=== PATIENT | male | born 1995 | race American Indian/Alaskan Native ===

== ENCOUNTER 2016-08-15 18:57 | Emergency (ER) | payer MEDICAID ==
[2016-08-15 19:14] VITALS: BP 145/80
--- NOTE | 2016-08-15 19:59 | EDM.PDOC ---
{null, ED HPI GENERAL MEDICAL PROBLEM - General Chief Complaint: Eye Problems Stated Complaint: eye infection [id number] Time Seen by Provider: 08/15/16 19:56 Source of Information: Reports: Patient History Limitations: Reports: No Limitations - History of Present Illness INITIAL COMMENTS - FREE TEXT/NARRATIVE: Sx few days getting worse. Left Eye Pain Score (Numeric/FACES): 5 - Related Data Allergies Allergy/AdvReac Type Severity Reaction Status Date / Time No Known Allergies Allergy Verified 02/24/16 19:38 Home Meds: Home Meds . [No Known Home Meds] 11/27/14 [History] Past Medical History - Past Health History Medical/Surgical History: Denies Medical/Surgical History Musculoskeletal History: Reports: Other (See Below) Other Musculoskeletal History: sprains Social & Family History - Family History Cardiac: Reports: Heart Failure, High Cholesterol, Hypertension, [place], Stent Other Cardiac Family History: Mom and dad - Tobacco Use Smoking Status *Q: Never Smoker Second Hand Smoke Exposure: No - Caffeine Use Caffeine Use: Reports: Coffee, Tea - Recreational Drug Use Recreational Drug Use: No ED ROS GENERAL - Review of Systems Review Of Systems: ROS reveals no pertinent complaints other than HPI. ED EXAM GENERAL W FULL EYE - Physical Exam Exam: See Below Exam Limited By: No Limitations General Appearance: Alert, WD/WN, Mild Distress, Other (eye discomfort) Eye Exam: Left Eye: Conjunctival Injection, Other (local erythema minimal lid swelling) Eyelids: Left: Edema, Erythema Conjunctiva & Sclera: Left: Injected Cornea Exam: Bilateral: Normal Appearance Extraocular Movements: Bilateral: Intact Pupillary Size: Bilateral: 4 mm Pupillary Reaction: Bilateral: Brisk Anterior Chamber: Bilateral: Normal Appearance Ears: Hearing Grossly Normal Throat/Mouth: Normal Voice, No Airway Compromise Head: Atraumatic Neck: Non-Tender, Full Range of Motion Respiratory/Chest: No Respiratory Distress Cardiovascular: Regular Rate, Rhythm GI/Abdominal: Soft, Non-Tender Neurological: Alert, Oriented, Normal Cognition, Normal Gait, No Motor/Sensory Deficits Psychiatric: Normal Affect, Normal Mood Skin Exam: Warm, Dry Lymphatic: No Adenopathy Course - Vital Signs Last Recorded V/S: Last Vital Signs Temp 36.6 C 08/15/16 19:18 Pulse 83 08/15/16 19:18 Resp 16 08/15/16 19:18 BP 145/80 H 08/15/16 19:18 Pulse Ox 98 08/15/16 19:18 Departure - Departure Time of Disposition: 19:58 Disposition: Home, Self-Care 01 Condition: good Clinical Impression: Conjunctivitis Qualifiers: Conjunctivitis type: acute Acute conjunctivitis type: unspecified Laterality: left Qualified Code(s): H10.32 - Unspecified acute conjunctivitis, left eye - Discharge Information Instructions: Bacterial Conjunctivitis, [id number] Forms: ED Department Discharge Additional Instructions: 1) don't rub eye 2) keep eye clean 3) follow up at clinic or recheck as needed rx togo: gentamycin eye drops 2 drops qid x 5 days }
== END 2016-08-15 20:02 | disposition home or self-care (01) ==
LOC: DL.ED 18:57
DX: H10.32 Unspecified acute conjunctivitis, left eye (principal)
CPT/HCPCS: 99282

== ENCOUNTER 2016-11-23 19:59 | Emergency (ER) | payer MEDICAID ==
[2016-11-23 20:07] VITALS: BP 139/90
--- NOTE | 2016-11-23 20:15 | EDM.PDOC ---
ED HPI GENERAL MEDICAL PROBLEM - General Chief Complaint: Lower Extremity Injury/Pain Stated Complaint: LEG PAIN [id number] Time Seen by Provider: 11/23/16 20:12 Source of Information: Reports: Patient History Limitations: Reports: No Limitations - History of Present Illness INITIAL COMMENTS - FREE TEXT/NARRATIVE: twisted [employer] CHIE[employer] Left Ankle Pain Score (Numeric/FACES): 5 - Related Data Allergies Allergy/AdvReac Type Severity Reaction Status Date / Time No Known Allergies Allergy Verified 11/23/16 20:04 Home Meds: Home Meds . [No Known Home Meds] 11/27/14 [History] Past Medical History - Past Health History Medical/Surgical History: Denies Medical/Surgical History HEENT History: Reports: None Cardiovascular History: Reports: None Respiratory History: Reports: None Gastrointestinal History: Reports: None Genitourinary History: Reports: None Musculoskeletal History: Reports: Other (See Below) Other Musculoskeletal History: sprains Neurological History: Reports: None Endocrine/Metabolic History: Reports: None Dermatologic History: Reports: None - Past Surgical History HEENT Surgical History: Reports: None Cardiovascular Surgical History: Reports: None Respiratory Surgical History: Reports: None GI Surgical History: Reports: None Male Surgical History: Reports: None Endocrine Surgical History: Reports: None Musculoskeletal Surgical History: Reports: None Social & Family History - Family History Cardiac: Reports: Heart Failure, High Cholesterol, Hypertension, [place], Stent Other Cardiac Family History: Mom and dad - Tobacco Use Smoking Status *Q: Never Smoker Second Hand Smoke Exposure: No - Caffeine Use Caffeine Use: Reports: Coffee, Soda, Tea - Recreational Drug Use Recreational Drug Use: No Review of Systems - Review of Systems Review Of Systems: ROS reveals no pertinent complaints other than HPI. ED EXAM, GENERAL - Physical Exam Exam: See Below Exam Limited By: No Limitations General Appearance: Alert, WD/WN, No Apparent Distress Ears: Hearing Grossly Normal Throat/Mouth: Normal Voice, No Airway Compromise Head: Atraumatic Neck: Non-Tender, Full Range of Motion Respiratory/Chest: No Respiratory Distress Cardiovascular: Regular Rate, Rhythm GI/Abdominal: Soft, Non-Tender Extremities: Limited Range of Motion, Other (left ankle swollen, tender R/P, NV wnl, gait limited to pain) Neurological: Alert, Oriented, Normal Cognition, No Motor/Sensory Deficits Psychiatric: Normal Affect, Normal Mood Skin Exam: Warm, Dry, Normal Color Lymphatic: No Adenopathy Course - Vital Signs Last Recorded V/S: Last Vital Signs Temp 35.7 C 11/23/16 20:06 Pulse 115 H 11/23/16 20:06 Resp 16 11/23/16 20:06 BP 139/90 11/23/16 20:06 Pulse Ox 97 11/23/16 20:06 - Re-Assessments/Exams Free Text/Narrative Re-Assessment/Exam: 11/23/16 21:03 results discussed with pt. Departure - Departure Time of Disposition: 21:03 Disposition: Home, Self-Care 01 Condition: Good Clinical Impression: High ankle sprain of left lower extremity Qualifiers: Encounter type: initial encounter Qualified Code(s): S93.432A - Sprain of tibiofibular ligament of left ankle, initial encounter - Discharge Information Instructions: Ankle Sprain, [id number] Forms: ED Department Discharge Additional Instructions: 1) wear RASHAAD for comfort 2) elevate leg as much as possible 3) ice intermittently for swelling 4) follow up at clinic or recheck as needed
== END 2016-11-23 21:11 | disposition home or self-care (01) ==
LOC: DL.ED 19:59
DX: S93.432A Sprain of tibiofibular ligament of left ankle, initial encounter (principal); X50.1XXA Overexertion from prolonged static or awkward postures, initial encounter
CPT/HCPCS: 73610-LT; 99283

== ENCOUNTER 2017-03-03 20:50 | Emergency (ER) | payer MEDICAID ==
[2017-03-03 20:57] VITALS: BP 155/91
--- NOTE | 2017-03-03 21:12 | EDM.PDOC ---
ED HPI GENERAL MEDICAL PROBLEM - General Chief Complaint: Chest Pain Stated Complaint: STOMACH AND CHEST PAIN Time Seen by Provider: 03/03/17 21:05 Source of Information: Reports: Patient History Limitations: Reports: No Limitations - History of Present Illness INITIAL COMMENTS - FREE TEXT/NARRATIVE: This 21 yo male patient reports to the ED with a 1 day history of upper abdominal pain and chest pain. The patient reports his symptoms started yesterday after drinking an energy drink. The patient reports his pain has continued to get worse since that time. The patient reports he took some Tums today at about 1530, but got no symptom relief. The patient reports he has been seen for similar symptoms in the past, but they have not been this bad in the past. The patient has not attempted to be seen by his primary care provider. 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 [No Known Home Meds] 11/27/14 [History] Past Medical History - Past Health History Medical/Surgical History: Denies Medical/Surgical History HEENT History: Reports: None Cardiovascular History: Reports: None Respiratory History: Reports: None Gastrointestinal History: Reports: None Genitourinary History: Reports: None Musculoskeletal History: Reports: Other (See Below) Other Musculoskeletal History: sprains Neurological History: Reports: None Endocrine/Metabolic History: Reports: None Dermatologic History: Reports: None - Past Surgical History HEENT Surgical History: Reports: None Cardiovascular Surgical History: Reports: None Respiratory Surgical History: Reports: None GI Surgical History: Reports: None Male Surgical History: Reports: None Endocrine Surgical History: Reports: None Musculoskeletal Surgical History: Reports: None Social & Family History - Family History Cardiac: Reports: Heart Failure, High Cholesterol, Hypertension, [place], Stent Other Cardiac Family History: Mom and dad - Tobacco Use Smoking Status *Q: Never Smoker Second Hand Smoke Exposure: No - Caffeine Use Caffeine Use: Reports: Coffee, Soda, Tea - Recreational Drug Use Recreational Drug Use: No ED ROS GENERAL - Review of Systems Review Of Systems: ROS reveals no pertinent complaints other than HPI. ED EXAM, GENERAL - Physical Exam Exam: See Below Exam Limited By: No Limitations General Appearance: Alert, WD/WN, Moderate Distress Eye Exam: Bilateral Eye: EOMI, Normal Inspection, PERRL Ears: Normal External Exam, Normal Canal, Hearing Grossly Normal, Normal TMs Nose: Normal Inspection, Normal Mucosa, No Blood Throat/Mouth: Normal Inspection, Normal Lips, Normal Teeth, Normal Gums, Normal Oropharynx, Normal Voice, No Airway Compromise Head: Atraumatic, Normocephalic Neck: Normal Inspection, Supple, Non-Tender, Full Range of Motion Respiratory/Chest: No Respiratory Distress, Lungs Clear, Normal Breath Sounds, No Accessory Muscle Use, Chest Non-Tender Cardiovascular: Normal Peripheral Pulses, Regular Rate, Rhythm, No Edema, No Gallop, No JVD, No Murmur, No Rub GI/Abdominal: Normal Bowel Sounds, Soft, No Organomegaly, No Distention, No Mass , Pelvis Stable, Tender (epigastric) (Male) Exam: Deferred Rectal (Males) Exam: Deferred Back Exam: Normal Inspection, Full Range of Motion, NT Extremities: Normal Inspection, Normal Range of Motion, Non-Tender, Normal Capillary Refill, No Pedal Edema Neurological: Alert, Oriented, CN II-XII Intact, Normal Cognition, Normal Gait, Normal Reflexes, No Motor/Sensory Deficits Psychiatric: Normal Affect, Normal Mood Skin Exam: Warm, Dry, Intact, Normal Color, No Rash Lymphatic: No Adenopathy Course - Vital Signs Last Recorded V/S: Last Vital Signs Temp 37.1 C 03/03/17 20:54 Pulse 122 H 03/03/17 20:54 Resp 18 03/03/17 20:54 BP 155/91 H 03/03/17 20:54 Pulse Ox 95 03/03/17 20:54 - Orders/Labs/Meds Orders: Active Orders 24 hr Category Date Time Status EKG Documentation Completion [RC] URGENT Care 03/03/17 21:03 Active UA W/MICROSCOPIC [URIN] Stat Lab 03/03/17 22:04 Ordered Labs: Laboratory Tests 03/03/17 03/03/17 03/03/17 Range/Units 21:19 21:19 21:19 WBC 16.3 H (5.0-10.0) 10^3/uL RBC 5.69 (4.6-6.2) 10^6/uL Hgb 16.4 (14.0-18.0) g/dL Hct 48.1 (40.0-54.0) % MCV 84.5 (80-100) fL MCH 28.8 (27.0-34.0) pg MCHC 34.1 (33.0-35.0) g/dL Plt Count 310 (150-450) 10^3/uL Neut % (Auto) 84.9 H (42.2-75.2) % Lymph % (Auto) 7.8 L (20.5-50.1) % [place] % (Auto) 6.6 (2-8) % Eos % (Auto) 0.6 L (1.0-3.0) % Baso % (Auto) 0.1 (0.0-1.0) % Sodium 136 (135-145) mmol/L Potassium 3.7 (3.6-5.0) mmol/L Chloride 100 L (101-111) mmol/L Carbon Dioxide 21.0 (21.0-31.0) mmol/L Anion Gap 18.7 BUN 16 (7-18) mg/dL Creatinine 0.7 (0.6-1.3) mg/dL Est Cr Clr Drug Dosing 173.81 mL/min Estimated GFR (MDRD) > 60 BUN/Creatinine Ratio 22.85 Glucose 114 H (74-105) mg/dL Lactic Acid 0.9 (0.5-2.2) mmol/L Calcium 8.8 (8.4-10.2) mg/dl Total Bilirubin 1.2 H (0.2-1.0) mg/dL AST 27 (10-42) IU/L ALT 21 (10-60) IU/L Alkaline Phosphatase 98 (42-121) IU/L Troponin I < 0.02 (0.00-0.02) ng/ml Total Protein 8.3 H (6.7-8.2) g/dl Albumin 4.3 (3.2-5.5) g/dl Globulin 4.0 Albumin/Globulin Ratio 1.08 Amylase 42 (28-100) U/L Lipase 21 L (22-51) U/L Urine Color (YELLOW) Urine Appearance (CLEAR) Urine pH (5.0-9.0) Ur Specific [place] (1.005-1.030) Urine Protein (NEGATIVE) Urine Glucose (UA) (NEGATIVE) Urine Ketones (NEGATIVE) Urine Occult Blood (NEGATIVE) Urine Nitrite (NEGATIVE) Urine Bilirubin (NEGATIVE) Urine Urobilinogen (0.2-1.0) mg/dL Ur Leukocyte Esterase (NEGATIVE) Urine Opiates Screen (NEGATIVE) Ur Oxycodone Screen (NEGATIVE) Urine Methadone Screen (NEGATIVE) Ur Barbiturates Screen (NEGATIVE) U Tricyclic Antidepress (NEGATIVE) Ur Phencyclidine Scrn (NEGATIVE) Ur Amphetamine Screen (NEGATIVE) U Methamphetamines Scrn (NEGATIVE) Urine MDMA Screen (NEGATIVE) U Benzodiazepines Scrn (NEGATIVE) Urine Cocaine Screen (NEGATIVE) U Marijuana (THC) Screen (NEGATIVE) 03/03/17 03/03/17 Range/Units 21:58 21:58 WBC (5.0-10.0) 10^3/uL RBC (4.6-6.2) 10^6/uL Hgb (14.0-18.0) g/dL Hct (40.0-54.0) % MCV (80-100) fL MCH (27.0-34.0) pg MCHC (33.0-35.0) g/dL Plt Count (150-450) 10^3/uL Neut % (Auto) (42.2-75.2) % Lymph % (Auto) (20.5-50.1) % [place] % (Auto) (2-8) % Eos % (Auto) (1.0-3.0) % Baso % (Auto) (0.0-1.0) % Sodium (135-145) mmol/L Potassium (3.6-5.0) mmol/L Chloride (101-111) mmol/L Carbon Dioxide (21.0-31.0) mmol/L Anion Gap BUN (7-18) mg/dL Creatinine (0.6-1.3) mg/dL Est Cr Clr Drug Dosing mL/min Estimated GFR (MDRD) BUN/Creatinine Ratio Glucose (74-105) mg/dL Lactic Acid (0.5-2.2) mmol/L Calcium (8.4-10.2) mg/dl Total Bilirubin (0.2-1.0) mg/dL AST (10-42) IU/L ALT (10-60) IU/L Alkaline Phosphatase (42-121) IU/L Troponin I (0.00-0.02) ng/ml Total Protein (6.7-8.2) g/dl Albumin (3.2-5.5) g/dl Globulin Albumin/Globulin Ratio Amylase (28-100) U/L Lipase (22-51) U/L Urine Color Yellow (YELLOW) Urine Appearance Clear (CLEAR) Urine pH 5.5 (5.0-9.0) Ur Specific [place] >= 1.030 (1.005-1.030) Urine Protein Trace H (NEGATIVE) Urine Glucose (UA) Negative (NEGATIVE) Urine Ketones Negative (NEGATIVE) Urine Occult Blood Negative (NEGATIVE) Urine Nitrite Negative (NEGATIVE) Urine Bilirubin Negative (NEGATIVE) Urine Urobilinogen 0.2 (0.2-1.0) mg/dL Ur Leukocyte Esterase Negative (NEGATIVE) Urine Opiates Screen Negative (NEGATIVE) Ur Oxycodone Screen Negative (NEGATIVE) Urine Methadone Screen Negative (NEGATIVE) Ur Barbiturates Screen Negative (NEGATIVE) U Tricyclic Antidepress Negative (NEGATIVE) Ur Phencyclidine Scrn Negative (NEGATIVE) Ur Amphetamine Screen Negative (NEGATIVE) U Methamphetamines Scrn Negative (NEGATIVE) Urine MDMA Screen Negative (NEGATIVE) U Benzodiazepines Scrn Negative (NEGATIVE) Urine Cocaine Screen Negative (NEGATIVE) U Marijuana (THC) Screen Negative (NEGATIVE) Meds: Medications Discontinued Medications Generic Name Dose Route Start Last Admin Trade Name Freq PRN Reason Stop Dose Admin Al Hydroxide/Mg Hydroxide 30 ml 03/03/17 22:04 03/03/17 22:11 Gi Cocktail PO 03/03/17 22:05 30 ml ONETIME ONE Administration Departure - Departure Time of Disposition: 22:21 Disposition: Home, Self-Care 01 Condition: Fair Clinical Impression: Gastroesophageal reflux disease Qualifiers: Esophagitis presence: with esophagitis Qualified Code(s): K21.0 - Gastro- esophageal reflux disease with esophagitis Instructions: Food Choices for Gastroesophageal Reflux Disease, Adult, Gastroesophageal Reflux Disease, Adult Forms: ED Department Discharge Care Plan Goals: The patient was advised of the examination, lab, EKG and x-ray results during the visit. The patient reports symptom relief after getting a GI Cocktail. The patient was discharged with a script for Omeprazole (20 mg) #30 to take 1 by mouth daily (30 minutes prior to meal). If the patient has any additional symptoms or concerns, the patient should follow-up with his primary care facility or return to the emergency department. - My Orders Last 24 Hours: My Active Orders 03/03/17 21:03 EKG Documentation Completion [RC] URGENT 03/03/17 22:04 UA W/MICROSCOPIC [URIN] Stat - Assessment/Plan Last 24 Hours: My Active Orders 03/03/17 21:03 EKG Documentation Completion [RC] URGENT 03/03/17 22:04 UA W/MICROSCOPIC [URIN] Stat
[2017-03-03 21:47] LABS: CHLORIDE,CL 100 mmol/L (101-111); SODIUM,NA 136 mmol/L (135-145)
[2017-03-03] MEDS ORDERED: GI Cocktail Oral Solution 30 ML PO ONE (22:04)
--- NOTE | 2017-03-07 12:50 | EKG ---
03/03/2017 - MAYO LUGO - [facility] 12-lead EKG shows normal sinus rhythm, sinus tachycardia. No significant ST elevation or ST depression noted on this 12-lead EKG. Nonspecific ST-T wave changes noted on lead AVR. [facility] /[id number]
== END 2017-03-03 22:26 | disposition home or self-care (01) ==
LOC: DL.ED 20:50
DX: K21.0 Gastro-esophageal reflux disease with esophagitis (principal)
CPT/HCPCS: 36415; 71010; 80053; 80305; 81001; 82150; 83605; 83690; 84484; 85025; 93005; 99285; A9270

== ENCOUNTER 2017-08-07 21:19 | Emergency (ER) | payer MEDICAID ==
[2017-08-07 21:35] VITALS: BP 137/82
== END 2017-08-08 00:30 | disposition left against medical advice (07) ==
LOC: DL.ED 21:19
DX: Z53.21 Procedure and treatment not carried out due to patient leaving prior to being seen by health care provider (principal)
CPT/HCPCS: 80305; 81001; 87491; 87591

== ENCOUNTER 2018-07-26 17:10 | Emergency (ER) | payer MEDICAID ==
[2018-07-26 17:42] VITALS: BP 133/84
--- NOTE | 2018-07-27 12:31 | EDM.PDOC ---
Scribed by Marianela Royal 07/26/18 [id number] for Margarita Cruz NP ED HPI GENERAL MEDICAL PROBLEM - General Chief Complaint: ENT Problem Stated Complaint: SORE THROAT Time Seen by Provider: 07/26/18 18:16 Source of Information: Reports: Patient, RN, RN Notes Reviewed History Limitations: Reports: No Limitations - History of Present Illness INITIAL COMMENTS - FREE TEXT/NARRATIVE: Patient presents to ER with complaint of feeling sick. This began 2 days ago. He has burning in the throat. HE rates throat pain as 5/10. He has a hoarse voice. He has had fever, sore throat, cough, stuffy nose and burning in chest. He has had no chills, nausea, vomiting, diarrhea, headache or sinus pain. Onset: Gradual Duration: Constant Location: Reports: Generalized Quality: Reports: Ache Severity: Mild Improves with: Reports: None Worsens with: Reports: None Associated Symptoms: Reports: No Other Symptoms Treatments NOTEMAN: Reports: Other Medication(s) Throat Pain Score (Numeric/FACES): 5 - Related Data Allergies Allergy/AdvReac Type Severity Reaction Status Date / Time No Known Allergies Allergy Verified 07/26/18 17:57 Home Meds: Home Meds . [No Known Home Meds] 11/27/14 [History] Past Medical History - Past Health History Medical/Surgical History: Denies Medical/Surgical History HEENT History: Reports: None Cardiovascular History: Reports: None Respiratory History: Reports: None Gastrointestinal History: Reports: None Genitourinary History: Reports: None Musculoskeletal History: Reports: Other (See Below) Other Musculoskeletal History: sprains Neurological History: Reports: None Endocrine/Metabolic History: Reports: None Dermatologic History: Reports: None - Past Surgical History HEENT Surgical History: Reports: None Cardiovascular Surgical History: Reports: None Respiratory Surgical History: Reports: None GI Surgical History: Reports: None Male Surgical History: Reports: None Endocrine Surgical History: Reports: None Musculoskeletal Surgical History: Reports: None Social & Family History - Family History Cardiac: Reports: Heart Failure, High Cholesterol, Hypertension, [place], Stent Other Cardiac Family History: Mom and dad - Tobacco Use Smoking Status *Q: Never Smoker Second Hand Smoke Exposure: No - Caffeine Use Caffeine Use: Reports: Energy Drinks, Soda - Recreational Drug Use Recreational Drug Use: No ED ROS ENT - Review of Systems Review Of Systems: ROS reveals no pertinent complaints other than HPI. ED EXAM, ENT - Physical Exam Exam: See Below Exam Limited By: No Limitations General Appearance: Alert, WD/WN, No Apparent Distress Eye Exam: Bilateral Eye: EOMI, Normal Inspection, PERRL Ears: Normal External Exam, Normal Canal, Hearing Grossly Normal, Normal TMs Nose: Normal Inspection, Normal Mucousa, No Blood Mouth/Throat: Other (tonsils +2 erythematous. Hoarse voice.) Head: Atraumatic, Normocephalic Neck: Normal Inspection (+2 anterior cervical tender), Supple, Non-Tender, Full Range of Motion Respiratory/Chest: No Respiratory Distress, Lungs Clear, Normal Breath Sounds, No Accessory Muscle Use, Chest Non-Tender Cardiovascular: Normal Peripheral Pulses, Regular Rate, Rhythm, No Edema, No Gallop, No JVD, No Murmur, No Rub GI/Abdominal: Normal Bowel Sounds, Soft, Non-Tender, No Organomegaly, No Distention, No Abnormal Bruit, No Mass (Male) Exam: Deferred Rectal (Males) Exam: Deferred Back: Normal Inspection, Full Range of Motion Extremities: Normal Inspection, Normal Range of Motion, Non-Tender, No Pedal Edema, Normal Capillary Refill Neurological: Alert, Oriented, CN II-XII Intact, Normal Cognition, Normal Gait, Normal Reflexes, No Motor/Sensory Deficits Psychiatric: Normal Affect, Normal Mood Skin: Warm, Dry, Intact, Normal Color, No Rash Lymphatic: No Adenopathy Course - Vital Signs Last Recorded V/S: Last Vital Signs Temp 95.8 F 07/26/18 17:35 Pulse 89 07/26/18 17:35 Resp 16 07/26/18 17:35 BP 133/84 07/26/18 17:35 Pulse Ox 95 07/26/18 17:35 - Orders/Labs/Meds Labs: Rapid strep: Negative. Departure - Departure Time of Disposition: 18:33 Disposition: Home, Self-Care 01 Condition: Fair Clinical Impression: Tonsillitis, Laryngitis - Discharge Information *PRESCRIPTION DRUG MONITORING PROGRAM REVIEWED*: No *COPY OF PRESCRIPTION DRUG MONITORING REPORT IN PATIENT SAM: No Instructions: Tonsillitis, [id number], Laryngitis, [id number] Referrals: PCP,None [Primary Care Provider] - Forms: ED Department Discharge Additional Instructions: RX: Amoxicillin May use Tylenol and/or Ibuprofen as directed for pain/fever Follow up with your primary care facility Drink plenty of water I have read and agree with the documentation that has been completed regarding this visit. By signing this record, I attest that the documentation was completed in my physical presence and is an accurate record of the encounter.
== END 2018-07-26 18:46 | disposition home or self-care (01) ==
LOC: DL.ED 17:10
DX: J03.90 Acute tonsillitis, unspecified (principal); J04.0 Acute laryngitis
CPT/HCPCS: 87081; 87430; 99283

== ENCOUNTER 2021-08-15 09:43 | Emergency (ER) | payer MEDICAID, OTHER ==
[2021-08-15 10:12] VITALS: BP 138/85; PULSE 91
[2021-08-15 12:17] LABS: CORONAVIRUS COVID-19 NAA NEGATIVE (NEGATIVE)
[2021-08-15 12:17] LABS: ANION GAP 13.4 mEq/L (7-13); CHLORIDE,CL 103 mmol/L (98-107); SODIUM,NA 139 mmol/L (136-145)
== END 2021-08-15 12:41 | disposition home or self-care (01) ==
LOC: DL.ED 09:43
DX: J40 Bronchitis, not specified as acute or chronic (principal); Z20.822 Contact with and (suspected) exposure to COVID-19
CPT/HCPCS: 0240U; 36415; 71046; 80053; 83605; 83880; 84484; 85025; 85379; 93005; 99285

== ENCOUNTER 2021-09-05 19:56 | Emergency (ER) | payer OTHER ==
[2021-09-05 20:33] VITALS: BP 142/95; PULSE 104
[2021-09-05] MEDS ORDERED: methylPREDNISolone Sodium Succinate 125 MG/2 ML SDV IVPUSH ONE (21:43)
== END 2021-09-05 21:58 | disposition home or self-care (01) ==
LOC: DL.ED 19:56
DX: L24.9 Irritant contact dermatitis, unspecified cause (principal); F17.210 Nicotine dependence, cigarettes, uncomplicated
CPT/HCPCS: 96374; 99283; J2930

== ENCOUNTER 2022-03-10 09:10 | Emergency (ER) | payer OTHER ==
[2022-03-10 09:38] VITALS: BP 128/90; PULSE 106
[2022-03-10 10:08] LABS: RESPIRATORY SYNCYTIAL VIR NAA NEGATIVE (NEGATIVE)
[2022-03-10 10:41] LABS: CORONAVIRUS COVID-19 NAA POSITIVE (NEGATIVE)
== END 2022-03-10 10:55 | disposition home or self-care (01) ==
LOC: DL.ED 09:10
DX: U07.1 COVID-19 (principal)
CPT/HCPCS: 0241U; 87081; 87430; 99284

== ENCOUNTER 2022-07-03 19:36 | Emergency (ER) | payer OTHER ==
[2022-07-03 19:47] VITALS: BP 136/91; PULSE 103
[2022-07-03 20:55] LABS: CORONAVIRUS COVID-19 NAA NEGATIVE (NEGATIVE); RESPIRATORY SYNCYTIAL VIR NAA NEGATIVE (NEGATIVE)
[2022-07-03] MEDS ORDERED: Penicillin G Benzathine/Procaine 600-600 1.2 Millunits/2 ML Syringe IM ONE (21:10)
== END 2022-07-03 21:38 | disposition home or self-care (01) ==
LOC: DL.ED 19:36
DX: J02.0 Streptococcal pharyngitis (principal); F17.210 Nicotine dependence, cigarettes, uncomplicated; Z20.822 Contact with and (suspected) exposure to COVID-19
CPT/HCPCS: 0241U; 87430; 96372; 99283; J0558; 99282

== ENCOUNTER 2022-10-14 10:06 | Emergency (ER) | payer OTHER ==
[2022-10-14 10:19] VITALS: BP 147/91; PULSE 78
[2022-10-14] MEDS ORDERED: Sodium Chloride 0.9% 1,000 ML IV ONE (10:31)
[2022-10-14 10:41] LABS: BASOPHILS PERCENT AUTO 0.1 % (0.0-1.0); EOSINOPHILS PERCENT AUTO 3.5 % (1.0-3.0); HEMATOCRIT 44.3 % (40.0-54.0); LYMPHOCYTES PERCENT AUTO 31.6 % (20.5-50.1); MEAN CORPUSCULAR HEMOGLOBIN 29.4 pg (27.0-34.0); MEAN CORPUSCULAR HGB CONC 33.9 g/dL (33.0-35.0); MEAN CORPUSCULAR VOLUME 86.7 fL (80-100); MONOCYTES PERCENT AUTO 8.2 % (2-8); NEUTROPHILS PERCENT AUTO 56.6 % (42.2-75.2); PLATELET COUNT,PLT 358 10^3/uL (150-450); RED BLOOD CELL COUNT 5.11 10^6/uL (4.6-6.2); WHITE BLOOD CELL COUNT,WBC 11.9 10^3/uL (5.0-10.0)
[2022-10-14 11:03] LABS: A/G RATIO 0.9; ALANINE AMINOTRANSFERASE,ALT 22 U/L (16-63); ALBUMIN 3.7 g/dL (3.4-5.0); ALKALINE PHOSPHATASE 101 U/L (46-116); ANION GAP 14.6 mEq/L (7-13); ASPARTATE AMNIOTRANSFERASE,AST 14 U/L (15-37); BILIRUBIN TOTAL 0.6 mg/dL (0.2-1.0); BLOOD UREA NITROGEN,BUN 14 mg/dL (7-18); BUN/CREATININE RATIO 15.4 (No establ ref range); CALCIUM 8.4 mg/dL (8.5-10.1); CARBON DIOXIDE,CO2 27 mmol/L (21-32); CHLORIDE,CL 102 mmol/L (98-107); CREATININE 0.91 mg/dL (0.70-1.30); EST CRCL DRUG DOSING (CG) 127.01 mL/min; GLUCOSE RANDOM 122 mg/dL (70-99); LACTIC ACID 1.7 mmol/L (0.4-2.0); LIPASE 78 U/L (73-393); POTASSIUM,K 3.6 mmol/L (3.5-5.1); PROTEIN TOTAL,TP 7.7 g/dL (6.4-8.2); SODIUM,NA 140 mmol/L (136-145)
[2022-10-14 11:05] LABS: C-REACTIVE PROTEIN < 0.2 mg/dL (0.0-0.9); ESTIMATED GFR 119 mL/min (>=60); ETHANOL BLOOD MEDICAL < 3 mg/dL (0)
[2022-10-14 11:25] LABS: APPEARANCE,URINE CLEAR (CLEAR); BILIRUBIN,URINE NEGATIVE (NEGATIVE); COLOR,URINE YELLOW (YELLOW); GLUCOSE,URINE NEGATIVE (NEGATIVE); KETONES,URINE NEGATIVE (NEGATIVE); LEUKOCYTE ESTERASE,URINE TRACE (NEGATIVE); NITRITE,URINE NEGATIVE (NEGATIVE); OCCULT BLOOD,URINE NEGATIVE (NEGATIVE); PROTEIN,URINE NEGATIVE (NEGATIVE); UROBILINOGEN,URINE 0.2 mg/dL (0.2-1.0)
[2022-10-14 11:26] LABS: AMPHETAMINES,URINE NEGATIVE (NEGATIVE); BARBITURATES,URINE NEGATIVE (NEGATIVE); BENZODIAZEPINE,URINE NEGATIVE (NEGATIVE); MDMA (ECSTASY), URINE NEGATIVE (NEGATIVE); METHADONE,URINE NEGATIVE (NEGATIVE); METHAMPHETAMINES,URINE NEGATIVE (NEGATIVE); OPIATES,URINE NEGATIVE (NEGATIVE); OXYCODONE,URINE NEGATIVE (NEGATIVE); PHENCYCLIDINE,URINE NEGATIVE (NEGATIVE); TCA,URINE NEGATIVE (NEGATIVE)
[2022-10-14 11:42] LABS: BACTERIA,URINE RARE /HPF (0-FEW/HPF); EPITHELIAL CELLS,URINE RARE /HPF (NOT SEEN); RBC,URINE 0-5 /HPF (0-5); WBC,URINE 0-5 /HPF (0-5/HPF)
== END 2022-10-14 12:10 | disposition home or self-care (01) ==
LOC: DL.ED 10:06
DX: E86.0 Dehydration (principal); U07.0 Vaping-related disorder; F19.122 Other psychoactive substance abuse with intoxication with perceptual disturbances
CPT/HCPCS: 36415; 71045; 80053; 80305; 80307; 81001; 82947; 83605; 83690; 83735; 84484; 85025; 86140; 87086; 93005; 96360; 99285; J7030

== ENCOUNTER 2023-04-23 02:27 | Emergency (ER) | payer OTHER ==
[2023-04-23 02:49] VITALS: BP 141/87; PULSE 74
== END 2023-04-23 02:59 | disposition home or self-care (01) ==
LOC: DL.ED 02:27
DX: G47.9 Sleep disorder, unspecified (principal); T43.615A Adverse effect of caffeine, initial encounter
CPT/HCPCS: 99282; 99284

== ENCOUNTER 2023-09-06 08:32 | Emergency (ER) | payer OTHER ==
[2023-09-06 08:40] VITALS: BP 139/83; PULSE 80
== END 2023-09-06 10:04 | disposition home or self-care (01) ==
LOC: DL.ED 08:32
DX: M77.9 Enthesopathy, unspecified (principal); Z86.16 Personal history of COVID-19
CPT/HCPCS: 36415; 73562-LT; 85379; 86140; 99283; 99283-25

== ENCOUNTER 2024-04-23 08:00 | Emergency (ER) | payer OTHER ==
[2024-04-23] MEDS: Dexamethasone 4 MG/ML SDV PO ONE (08:28)
[2024-04-23] MEDS: Albuterol/Ipratropium 3.0-0.5 MG/3 ML Neb Soln NEB ONE (08:28)
[2024-04-23 09:05] VITALS: BP 145/91; PULSE 95
== END 2024-04-23 09:00 | disposition home or self-care (01) ==
LOC: DL.ED 08:00
DX: J40 Bronchitis, not specified as acute or chronic (principal); Z86.16 Personal history of COVID-19
CPT/HCPCS: 71045; 94640; 99285; J1100; J7620-GY

== ENCOUNTER 2024-04-25 03:56 | Emergency (ER) | payer OTHER ==
[2024-04-25 04:08] VITALS: BP 123/63; PULSE 114
[2024-04-25] MEDS: predniSONE 20 MG Tab PO ONE (04:31)
[2024-04-25] MEDS: Acetaminophen 325 MG Tab PO ONE (04:31)
[2024-04-25] MEDS: Doxycycline Monohydrate 100 MG Cap PO ONE (04:31)
[2024-04-25] MEDS: Albuterol 6.7 GM Inhaler INH ONE (04:31)
== END 2024-04-25 04:38 | disposition home or self-care (01) ==
LOC: DL.ED 03:56
DX: J40 Bronchitis, not specified as acute or chronic (principal); Z87.891 Personal history of nicotine dependence
CPT/HCPCS: 99284; A9270; J7512

== ENCOUNTER 2025-02-23 12:17 | Emergency (ER) | payer OTHER ==
[2025-02-23 12:26] VITALS: BP 137/93; PULSE 89
[2025-02-23] MEDS ORDERED: Ondansetron 4 MG Tab.DIS PO ONE (12:30)
[2025-02-23] MEDS: Ondansetron 4 MG Tab.DIS PO ONE (12:33)
[2025-02-23] MEDS: Take Home: Ondansetron 4 MG Tab.DIS, 5 Tab Pack PO ONE (12:55)
== END 2025-02-23 12:56 | disposition home or self-care (01) ==
LOC: DL.ED 12:17
DX: A09 Infectious gastroenteritis and colitis, unspecified (principal)
CPT/HCPCS: 99283; A9270-GY; Q0162

== ENCOUNTER 2025-02-25 20:11 | Emergency (ER) | payer OTHER ==
[2025-02-25] MEDS ORDERED: Sodium Chloride 0.9% 10 ML Syringe FLUSH PRN (20:24)
[2025-02-25] MEDS: Ketorolac 30 MG/ML SDV IVPUSH ONE (20:40)
[2025-02-25 20:42] LABS: BASOPHILS PERCENT AUTO 0.3 % (0.0-1.0); EOSINOPHILS PERCENT AUTO 2.3 % (1.0-3.0); LYMPHOCYTES PERCENT AUTO 22.4 % (20.5-50.1); MONOCYTES PERCENT AUTO 13.3 % (2-8); NEUTROPHILS PERCENT AUTO 61.7 % (42.2-75.2); PLATELET COUNT,PLT 313 10^3/uL (150-450); RED BLOOD CELL COUNT 5.17 10^6/uL (4.6-6.2); WHITE BLOOD CELL COUNT,WBC 10.4 10^3/uL (5.0-10.0)
[2025-02-25 21:05] LABS: LACTIC ACID 1.3 mmol/L (0.4-2.0)
[2025-02-25 21:11] LABS: A/G RATIO 0.8; ALANINE AMINOTRANSFERASE,ALT 65.0 U/L (16-63); ASPARTATE AMNIOTRANSFERASE,AST 44.0 U/L (15-37); BILIRUBIN TOTAL 0.8 mg/dL (0.2-1.0); BLOOD UREA NITROGEN,BUN 15.0 mg/dL (7-18); CARBON DIOXIDE,CO2 27.0 mmol/L (21-32); CHLORIDE,CL 101.0 mmol/L (98-107); CREATININE 0.93 mg/dL (0.70-1.30); EST CRCL DRUG DOSING (CG) 118.26 mL/min; GLUCOSE RANDOM 105.0 mg/dL (70-99); POTASSIUM,K 3.5 mmol/L (3.5-5.1); PROTEIN TOTAL,TP 7.5 g/dL (6.4-8.2); SODIUM,NA 136.0 mmol/L (136-145)
[2025-02-25 21:12] LABS: ESTIMATED GFR 115.0 mL/min (>=60)
[2025-02-25 21:28] VITALS: BP 124/79; PULSE 76
== END 2025-02-25 21:23 | disposition home or self-care (01) ==
LOC: DL.ED 20:11
DX: K52.9 Noninfective gastroenteritis and colitis, unspecified (principal)
CPT/HCPCS: 36415; 74018; 80053; 83605; 83690; 83735; 85025; 86140; 96374; 99284; J1885; 99283